=== PATIENT | male | born 1990 | race American Indian/Alaskan Native ===

== ENCOUNTER 2018-01-19 09:15 | Emergency (ER) | payer SELFPAY ==
--- NOTE | 2018-01-19 09:48 | Emergency Department Report ---
Upper Extremity - HPI Chief Complaint: Extremity Injury, Upper Stated Complaint: LEFT ARM DISLOCATED Time Seen by Provider: 01/19/18 09:41 Upper Extremity: Left Shoulder Occurred When: 1 Day Mechanism: Fall Severity: moderate Symptoms: Yes Pain with Movement, No Deformity, No Limited Range of Movement, No Numbness, No Weakness, No Swelling, No Bruising/Ecchymosis, No Laceration or Abrasion Other History: rolled out of bed onto shoulder. hx dislocation. concerned it is again ED Review of Systems ROS: Stated complaint: LEFT ARM DISLOCATED Other details as noted in HPI Comment: All other systems reviewed and negative Musculoskeletal: arthralgia ED Past Medical Hx - Surgical History Past Surgical History?: No Additional Surgical History: back surgery - Social History Smoking Status: Current Every Day Smoker Substance Use Type: None - Medications Home Medications: Home Medications Medication Instructions Recorded Confirmed Last Taken Type Naproxen [Naprosyn] 500 mg PO BID #20 tablet 01/19/18 Unknown Rx Upper Extremity Exam - Exam General: Vital signs noted. No distress. Alert and acting appropriately. Head and Torso: No HEENT Abnormality, No Neck Tenderness, No Chest/Lungs Abnormality, No Abdominal Tenderness, No Back Tenderness Shoulder Exam: Yes Shoulder Tenderness, Yes Normal Range of Motion in Shoulder, No Clavicle Tenderness, No Shoulder Deformity, No AC Joint Tenderness Arm Exam: No Arm/Humerus Tenderness, No Arm Deformity Elbow: Yes Normal Range of Motion in Elbow, No Elbow Tenderness, No Elbow Deformity Forearm: No Forearm Tenderness, No Forearm Deformity, No Pain with Pronation, No Pain with Supination Wrist: Yes Normal ROM in Wrist, No Wrist Tenderness, No Wrist Deformity, No Snuffbox Tenderness, No Pain with Axial Thumb Compression Hand: Yes Normal ROM in Digit(s), No Hand Tenderness, No Hand Deformity, No Digit Tenderness, No Digit(s) Deformity, No Tendon Dysfunction CMS Exam: Yes Normal Distal Pulses, Yes Normal Capillary Refill, Yes Normal Distal Sensation, No Broken Skin ED Course Vital Signs 01/19/18 09:20 Temperature 98.7 F Pulse Rate 81 Respiratory 18 Rate Blood Pressure 124/69 O2 Sat by Pulse 100 Oximetry ED Medical Decision Making - Radiology Data Radiology results: report reviewed, image reviewed osteochondroma, otherwise normal - Medical Decision Making shoulder injury, prior dislocation exam unremarkable, NV intact imaging shows small osteochondroma otherwise normal, pt aware fu ortho - Differential Diagnosis contusion, strain, dislocation Critical care attestation.: If time is entered above; I have spent that time in minutes in the direct care of this critically ill patient, excluding procedure time. ED Disposition Clinical Impression: Left shoulder strain Qualifiers: Encounter type: initial encounter Qualified Code(s): S46.912A - Strain of unspecified muscle, fascia and tendon at shoulder and upper arm level, left arm , initial encounter Osteochondroma of humerus Qualifiers: Laterality: left Qualified Code(s): D16.02 - Benign neoplasm of scapula and long bones of left upper limb Disposition: DC-01 TO HOME OR SELFCARE Is pt being admited?: No Condition: Good Instructions: Shoulder Sprain (ED) Prescriptions: Naproxen [Naprosyn] 500 mg PO BID #20 tablet Referrals: PRIMARY CAREMD [Primary Care Provider] - 3-5 Days SON BUCK MD [Staff Physician] - 3-5 Days Time of Disposition: 10:37
--- NOTE | 2018-01-19 10:31 | XRay Report ---
LEFT SHOULDER, 3 views: History: Shoulder pain. Routine views demonstrate normal bony and soft tissue structures with normal joint alignment of the shoulder. No joint pathology is identified. A small osteochondroma projects laterally from the proximal humeral shaft measuring 1.5 x 0.9 cm. IMPRESSION: Small osteochondroma of the proximal left humerus. Unremarkable left shoulder.
[2018-01-19 10:53] VITALS: BP 122/74
== END 2018-01-19 10:50 | disposition home or self-care (01) ==
LOC: ED 09:15
DX: S46.912A Strain of unspecified muscle, fascia and tendon at shoulder and upper arm level, left arm, initial encounter (principal); D16.02 Benign neoplasm of scapula and long bones of left upper limb; F17.200 Nicotine dependence, unspecified, uncomplicated; W19.XXXA Unspecified fall, initial encounter; Y93.89 Activity, other specified; Y92.89 Other specified places as the place of occurrence of the external cause; Y99.8 Other external cause status
CPT/HCPCS: 99283